=== PATIENT | female | born 1990 | race Caucasian/White ===

== ENCOUNTER 2021-05-31 08:12 | Emergency (ER) | payer OTHER ==
[~2021-05-31] VITALS: Ht 152.4 cm; Wt 64.9 kg
[~2021-05-31 08:12] MED LIST: DOXYCYCLINE 10100 MG PO; FAMOTIDINE 20 M20 MG PO; HYDROCORTISONE3011 TP; MEDROLDOSEPACK PO
[2021-05-31] MEDS ORDERED: EPIPEN0.3 MG/0.1 IM (11:27)
[2021-05-31 11:45] VITALS: BP 113/59
== END 2021-05-31 11:45 | disposition home or self-care (01) ==
LOC: ER 08:12
DX: T50.905A Adverse effect of unspecified drugs, medicaments and biological substances, initial encounter (principal); Z88.2 Allergy status to sulfonamides; Z88.8 Allergy status to other drugs, medicaments and biological substances; Y92.89 Other specified places as the place of occurrence of the external cause